=== PATIENT | male | born 1985 | race Caucasian/White ===

== ENCOUNTER → 2021-04-19 15:10 | Outpatient (BNVA) | payer SELFPAY | PROVIDERS: Visit Provider Nurse Practitioner Family | DX: R22.30 Localized swelling, mass and lump, unspecified upper limb (principal); S69.90XA Unspecified injury of unspecified wrist, hand and finger(s), initial encounter; S62.317A Displaced fracture of base of fifth metacarpal bone, left hand, initial encounter for closed fracture; X58.XXXA Exposure to other specified factors, initial encounter | CPT/HCPCS: 73130 ==

== ENCOUNTER 2021-04-22 11:56 | Outpatient (CLI) | payer SELFPAY | END 2021-04-22 11:57 | disposition home or self-care (01) | LOC: SPT 11:56 | PROVIDERS: Visit Provider Orthopaedic Surgery | DX: Z46.89 Encounter for fitting and adjustment of other specified devices (principal); S62.397D Other fracture of fifth metacarpal bone, left hand, subsequent encounter for fracture with routine healing; X58.XXXD Exposure to other specified factors, subsequent encounter | CPT/HCPCS: 97760; L3984 ==

== ENCOUNTER → 2021-05-20 15:32 | Outpatient (BNVA) | payer SELFPAY | PROVIDERS: Visit Provider Orthopaedic Surgery | DX: S62.307A Unspecified fracture of fifth metacarpal bone, left hand, initial encounter for closed fracture (principal); X58.XXXA Exposure to other specified factors, initial encounter | CPT/HCPCS: 73130 ==